=== PATIENT | female | born 1985 | race Caucasian/White ===

== ENCOUNTER 2022-01-29 08:18 | Emergency (ER) | payer MEDICAID, SELFPAY ==
[2022-01-29 08:30] VITALS: BP 99/67; PULSE 71; RESP 19; TEMP 36.9; O2SAT 98; BMI 28.1
--- NOTE | 2022-01-29 08:45 | HMH.EDUTC ---
[facility] [place] Clinical Impression: Viral syndrome Disposition: Home, Self-Care Condition on Discharge: Good Instructions: DI for COVID-19 (Suspected or Confirmed ), Preventing the Spread of Coronavirus Discharge Instructions, DI for Fever (Symptom) -- Adult Additional Instructions: *Monitor Temp, Over the counter Motrin or Tylenol as directed/as needed Tylenol every 4 hours and Motrin every 6 hours (as long as your family doctor has told you that you can take it) for fever or pain. and straight to ER if unable to lower temp less than 101.0 after medication given *Warm salt water gargles may help to soothe the throat *Throat Lozenges *Warm fluids like tea with honey may help to soothe the throat *Sleep elevated *Humidifier/Vaporizer Follow up IMMEDIATELY for new or worsening symptoms or no Noticeable improvement over the next 48-72 hours. 911 for difficulty breathing or swallowing You were tested for today for COVID19 your test result should be back in the next 24-48 hours, you may check your result on the [facility] My Health Portal Make sure to take your Vitamins Vit. C Vit D and Zinc if you can take them Referrals: Provider,Referral, [Primary Care Provider] - As needed Forms: Work/School Release Time of Disposition: 08:47 Medical Decision Making - Leo Inquiry Pt receiving controlled substance: No Leo was queried for this patient: No Vital Signs: 01/29/22 08:30 Temperature 98.5 F Temperature Source Oral Pulse Rate [Right Brachial] 71 Respiratory Rate 19 Blood Pressure [Right Arm] 99/67 L Blood Pressure Mean [Right Arm] 77 Blood Pressure Source [Right Arm] Automatic Cuff Blood Pressure Position [Right Arm] Sitting 02 Sat by Pulse Oximetry 98 Oxygen Delivery Method Room Air Orders (Tests/Meds): ORDERS Category Date Time Status Covid-19 Nasal PCR ([facility]) Routine Lab 01/29/22 08:29 Ordered [facility] [place] HPI - General Stated complaint: fever, ROBBINS, congestion Time Seen by Provider: 01/29/22 08:45 Mode of Arrival: Ambulatory Source of Information: Patient Limitations: No Limitations Description of Symptoms (Recalled from Triage Doc. by RN): PATIENT C/O FEVER, HEADACHE AND COUGH. RECENTLY EXPOSED TO COVID HEENT Symptoms (Recalled from RN notes): Yes Resp Symptoms (Recalled from RN notes): Yes Skin Symptoms (Recalled from RN notes): No MS Symptoms (Recalled from RN notes): No Functional Status (Recalled from RN notes): WNL - History of Present Illness Provider Complaint: Patient states that she has been having fever, headache, body aches and little cough States that her grandson tested positive for COVID on Thursday and she took an at home test this morning and it was positive so she came in to get tested - Related Data Home Medications Medication Instructions Recorded Confirmed buprenorphine 8 mg-naloxone 2 mg 1 tab SUBLINGUAL DAILY tab 10/18/18 01/29/22 sublingual tablet Allergies Allergy/AdvReac Type Severity Reaction Status Date / Time No Known Allergies Allergy Verified 01/29/22 08:43 - Worker's Comp Is this a Worker's Comp case?: No [facility] History - Hepatitis A Screen Attestation statement:: This patient has been screened for Hepatitis A risk factors. I have reviewed the patient's past medical history: Yes Laterality Cases: Bilateral: Tonsillectomy Other Surgeries: Yes: , Hysterectomy-Partial, Other - Social History Smoking Status: Current every day smoker # Packs/Day (cigarettes): 1 Alcohol Intake: never Substance Use Type: former substance user Occupational Status: other Family Hx:: Diabetes, Heart Attack ROS Obtained: Yes All systems reviewed & no additional complaints, Yes Systems reviewed as appropriate & no additional complaints - Constitutional Constitutional: Reports system reviewed and no additional complaints, except as docu, Reports body ache, Reports chills, Reports headache(s) - ENT Ears, Nose, Mouth, and Throat: Reports system re
[2022-01-29 08:50] VITALS: BP 99/67; PULSE 71; RESP 19; TEMP 36.9; O2SAT 98
== END 2022-01-29 08:54 | disposition home or self-care (01) ==
PROVIDERS: Emergency Provider Nurse Practitioner
DX: U07.1 COVID-19 (principal)
CPT/HCPCS: 99212; C9803; G0463; U0003; U0005

== ENCOUNTER → 2023-06-16 08:24 | Outpatient (CLI) | payer BC, SELFPAY ==
[2023-06-16 09:55] LABS: Alanine Aminotransferase 19 U/L (12-78); Albumin Level 4.1 g/dl (3.5-5.0); Albumin/Globulin Ratio 1.6 (1.1-1.8); Alkaline Phosphatase 63 U/L (38-126); Aspartate Amino Transferase 24 U/L (14-36); Bilirubin,Total 0.7 mg/dl (0.2-1.3); Blood Urea Nitrogen 10 mg/dl (7-17); Calcium 8.6 mg/dl (8.4-10.2); Carbon Dioxide 30 mmol/L (22.0-30.0); Chloride 102 mmol/L (98-107); Cholesterol 208 mg/dl (140-200); Estimated Glomerular Filt Rate 93 ml/min (>60); GFR (African American) 112 ML/MIN (>60); Globulin 2.6 g/dL (1.3-3.2); Glucose 98 mg/dl (74-100); Total Protein,Serum 6.7 g/dl (6.3-8.2); Triglycerides 105 mg/dl (30-150); VLDL Cholesterol 21 mg/dL (0-40)
[2023-06-16 10:06] LABS: Direct LDL Cholesterol 124.16 mg/dL (100-129)
[2023-06-16 10:29] LABS: Anion Gap 9.6 mEq/L (5-15); Potassium 4.6 mmoL/L (3.5-5.1); Sodium 137 mmol/L (136-145)
[2023-06-16 10:33] LABS: Chol/HDL Ratio 3.6 (1-3.5); HDL Cholesterol 57 mg/dl (40-60)
== END ==
PROVIDERS: PCP Nurse Practitioner Family; Visit Provider Nurse Practitioner Family
DX: Z00.00 Encounter for general adult medical examination without abnormal findings (principal)
CPT/HCPCS: 36415; 80053; 80061

== ENCOUNTER → 2023-06-19 15:43 | Outpatient (CLI) | payer BC, SELFPAY ==
--- NOTE | 2023-06-19 15:51 | MM_ITS ---
PROCEDURE INFORMATION: Exam: Bilateral Screening 3D Mammography Exam date and time: 06/19/2023 3:53 PM Age: 38 years old Clinical indication: Baseline. Maternal aunts had breast cancer. TECHNIQUE: Imaging protocol: Bilateral Screening tomosynthesis and 2D mammography including computer-aided detection (CAD) when performed. COMPARISON: No relevant prior studies available. FINDINGS: MAMMOGRAPHY: Breast composition: The breasts are heterogeneously dense, which may obscure small masses. Mass: None. Architectural distortion: None. Calcifications: No suspicious calcifications. Asymmetric density: None. Skin thickening: None. Axillary adenopathy: None. IMPRESSION: No mammographic evidence of malignancy. Annual screening is recommended unless otherwise clinically indicated. ASSESSMENT: BI-RADS Category 1: Negative
== END ==
PROVIDERS: PCP Nurse Practitioner Family; Visit Provider Nurse Practitioner Family
DX: Z12.31 Encounter for screening mammogram for malignant neoplasm of breast (principal)
CPT/HCPCS: 77063; 77067

== ENCOUNTER 2024-09-27 06:21 | Day surgery (SDC) | payer MEDICAID, SELFPAY ==
[2024-09-26 11:42] VITALS: BMI 29.5
--- NOTE | 2024-09-27 07:40 | EXP.ANES.CKL ---
[facility] Disclaimer: The information contained in this section may have been updated after the patient was seen, as this information can be updated by other users. Medical History (Updated 09/26/24 @ 11:41 by Lacie Ruano RN) Rectal bleeding Surgical History (Updated 09/26/24 @ 11:39 by Lacie Ruano RN) History of tonsillectomy History of History of hysterectomy Family History (Updated 09/26/24 @ 11:39 by Lacie Ruano RN) Other Coronary artery disease Rectal cancer Social History Smoking Status: Current every day smoker alcohol intake: never substance use type: former substance user current occupational status: other Travel in the last 8 weeks: None Have you lived/traveled outside US in past 30 days?: No Contact w/someone who lives/traveled outside US past 30 days?: No Exposure to someone with infectious disease in past 14 days?: No Do you have a fever (greater than 100.4 F or 38 C)?: No Have you tested positive for COVID-19: No Exposed to someone with COVID-19 in past 14 days?: No Do you have a sore throat?: No Do you have a cough?: No Do you have any weakness?: No Do you have any diarrhea?: No Are you experiencing any unusual bleeding?: No Do you have any muscle aches/pain?: No Do you have any abdominal pain?: No Are you experiencing loss of taste or smell?: No [facility] Anesthesia Checklist Patient Identification Patient Identification: Arm Band and Verbal (Name & ) Structural Data Admitted From: Home Planned Operative Procedure/s: Colonoscopy Consent for Planned Operative Procedure(s) Verified: Yes Verified Documents: Surgical Consent and History and Physical NPO Status Verified Time NPO: 04:00 Chart Verification Results Verified: BMP Additional verifications Patient : No Anesthesia Reactions: No Previous Colonoscopy: Yes Cardiovascular Assessment Heart Sounds: S1 & S2 Pulse Rhythm: Irregular Peripheral Edema: No Airway Assessment Mallampati Score:: Class II C-Spine Mobility Assessed: Yes (FROM demonstrated) TMJ Mobility Assessed: Yes Dentition: Dentures-good fit (Upper) Neurological Assessment Level of Consciousness: Awake, Alert, Appropriate and Follows Commands Hx Seizures: No Numbness or tingling in extremities: No Anesthesia Plan Anesthesia Risk discussed: Yes Anesthesia Plan: Verified ASA Class: II Anesthesia Type: MAC
[2024-09-27 07:45] VITALS: BP 115/66; PULSE 55; RESP 18; TEMP 36.9; O2SAT 98
[2024-09-27] MEDS: LACTATED RINGERS 1000ML 1,000 ML 50 ML IV (07:54)
--- NOTE | 2024-09-27 08:05 | P.PCN_ITS ---
Procedure: Date: 09/27/24 Patient Date of :: 1985 Procedure Performed:: Limited flexible sigmoidoscopy [colonoscopy (aborted)] Indications:: Screening Performing Provider:: Jonah Fong MD Referring Provider:: . Sedation:: Monitored anesthesia care Procedure:: After informed consent was obtained the patient was taken to the endoscopy suite. Sedation ensued after the patient was transferred to the left lateral decubitus position. Pulse, blood pressure, and oxygen saturation were monitored throughout the procedure. Digital rectal exam revealed no significant abnormality. The colonoscope was placed in position. Formed stool within the sigmoid/rectum noted. Advancement beyond this point deemed unwarranted/unsafe. The colonoscope was carefully removed and the patient was transferred to [facility] in stable condition. Please see findings and specimens below for detail. Findings:: Bowel preparation exceedingly poor Specimens:: None Recommendations:: Gastroenterology consultation for evaluation regarding chronic constipation (patient endorses lifelong constipation ) and for short-term colonoscopy. Complications:: Colonoscopy aborted secondary to exceedingly poor bowel preparation Estimated blood obtained (mL): 0 Colonoscopy Component Colonoscopy Component Was a colonoscopy performed during today's procedure?: Yes Recommended follow up colonoscopy of at least 10 years?: No If no, follow up colonoscopy recommended in ___ years?: (See above) Reason for not recommending >/= 10 yr follow-up interval?: (See above)
[2024-09-27 08:36] VITALS: O2SAT 97
[2024-09-27 08:47] VITALS: BP 88/52; PULSE 62; RESP 18; TEMP 36.4; O2SAT 96
[2024-09-27 08:57] VITALS: BP 92/60; PULSE 68; RESP 18; O2SAT 98
[2024-09-27 09:07] VITALS: BP 111/67; PULSE 66; RESP 20; O2SAT 98
[2024-09-27 09:17] VITALS: BP 114/72; PULSE 66; RESP 18; O2SAT 96
== END 2024-09-27 09:27 | disposition home or self-care (01) ==
PROVIDERS: PCP Nurse Practitioner Family; Visit Provider Surgery
PROC: 0DJD8ZZ Inspection of Lower Intestinal Tract, Via Natural or Artificial Opening Endoscopic (ICD-10-PCS; CPT 45378; principal; 2024-09-27 08:25)
DX: Z53.8 Procedure and treatment not carried out for other reasons (principal); Z12.11 Encounter for screening for malignant neoplasm of colon
CPT/HCPCS: 45378; J7120

== ENCOUNTER 2025-04-19 07:57 | Outpatient (CLI) | payer BC, SELFPAY ==
[2025-04-19 08:23] LABS: Hematocrit 44.3 % (37.0-47.0); Hemoglobin 15.0 g/dL (12.2-16.2); Immature Granulocytes % 0.4 %; Mean Corpuscular HGB Conc 33.9 g/dL (31.8-35.4); Mean Corpuscular Hemoglobin 29.2 pg (27.0-31.2); Mean Corpuscular Volume 86.2 fl (81-99); Nucleated Red Blood Cells % 0 %; Platelet Count 272 K/mm3 (142-424); Red Blood Count 5.14 M/mm3 (4.20-5.40); Red Cell Distribution Width-SD 38.5 fL; White Blood Count 7.5 K/mm3 (4.8-10.8)
[2025-04-19 08:56] LABS: Alanine Aminotransferase 11 U/L (12-78); Albumin Level 3.9 g/dl (3.5-5.0); Albumin/Globulin Ratio 1.6 (1.1-1.8); Alkaline Phosphatase 77 U/L (38-126); Anion Gap 11.4 mEq/L (5-15); Aspartate Amino Transferase 17 U/L (14-36); Bilirubin,Total 0.9 mg/dl (0.2-1.3); Blood Urea Nitrogen 13 mg/dl (7-17); Calcium 9.2 mg/dl (8.4-10.2); Carbon Dioxide 27 mmol/L (22.0-30.0); Chloride 103 mmol/L (98-107); Cholesterol 198 mg/dl (140-200); Creatinine,Serum 0.70 mg/dl (0.52-1.04); Estimated Glomerular Filt Rate 92 ml/min (>60); GFR (African American) 112 ML/MIN (>60); Globulin 2.4 g/dL (1.3-3.2); Glucose 99 mg/dl (74-100); HDL Cholesterol 59 mg/dl (40-60); Potassium 4.4 mmoL/L (3.5-5.1); Sodium 137 mmol/L (136-145); Total Protein,Serum 6.3 g/dl (6.3-8.2); Triglycerides 64 mg/dl (30-150)
[2025-04-19 09:26] LABS: Thyroid Stimulating Hormone 1.27 uIU/mL (0.465-4.68)
[2025-04-19 09:41] LABS: Hemoglobin A1C 5.5 % (4.0-6.0)
[2025-04-19 09:45] LABS: Vitamin B12 316 pg/mL (239-931)
[2025-04-19 10:00] LABS: 25-OH Vitamin D, Total 39.2 ng/mL (30-100)
[2025-04-20 08:23] LABS: FSH 3.5 mIU/mL (.); LH 5.7 mIU/mL (.)
== END 2025-04-19 23:59 | disposition home or self-care (01) ==
LOC: LAB 07:59
PROVIDERS: PCP Nurse Practitioner Family; Visit Provider Nurse Practitioner Family
DX: Z00.00 Encounter for general adult medical examination without abnormal findings (principal); R53.81 Other malaise
CPT/HCPCS: 36415; 80053; 80061; 82306; 82607; 82670; 83001; 83002; 83036; 84443; 85025

== ENCOUNTER 2025-04-28 12:48 | Outpatient (CLI) | payer BC, SELFPAY ==
--- NOTE | 2025-04-28 12:51 | MM_ITS ---
PROCEDURE INFORMATION: Exam: MG Bilateral Screening 3D Mammography Exam date and time: 04/28/2025 1:20 PM Age: 39 years old Clinical indication: Screening examination. Maternal aunt had breast cancer. TECHNIQUE: Imaging protocol: Bilateral Screening tomosynthesis and 2D mammography including computer-aided detection (CAD) when performed. COMPARISON: MG MM DIG SCREENING MAMM BI W/CAD 06/19/2023 3:53 PM FINDINGS: MAMMOGRAPHY: Breast composition: The breasts are heterogeneously dense, which may obscure small masses. Mass: Question new oval partly obscured 1.7 cm mass in the left lower inner quadrant anterior 3rd, 1.5-4 cm from the nipple and similar 0.8 cm mass in the left upper outer quadrant posterior 3rd 6-8 cm from the nipple, CC series 1718 frame 26 and MLO series 96674 frame 25. Architectural distortion: None. Calcifications: No suspicious calcifications. Asymmetric density: None. Skin thickening: None. Axillary adenopathy: None. IMPRESSION: Patient recalled for left diagnostic mammography with spot compression CC and MLO and left sonography for further evaluation left breast masses. ASSESSMENT: BI-RADS Category 0: Incomplete: Need Additional Imaging Evaluation.
== END 2025-04-28 23:59 | disposition home or self-care (01) ==
LOC: RAD 12:48
PROVIDERS: PCP Internal Medicine Adolescent Medicine; Visit Provider Nurse Practitioner Family
DX: Z12.31 Encounter for screening mammogram for malignant neoplasm of breast (principal); R92.333 Mammographic heterogeneous density, bilateral breasts; R92.8 Other abnormal and inconclusive findings on diagnostic imaging of breast; Z80.3 Family history of malignant neoplasm of breast
CPT/HCPCS: 77063; 77067

== ENCOUNTER 2025-05-25 13:41 | Outpatient (CLI) | payer BC, SELFPAY ==
--- NOTE | 2025-05-25 13:44 | US_ITS ---
PROCEDURE INFORMATION: Exam: US Left Breast, Complete MG Left Diagnostic Breast Tomosynthesis Exam date and time: 05/25/2025 1:51 PM Age: 40 years old Clinical indication: Callback for a left breast mammogram finding. Family history of breast cancer. TECHNIQUE: Imaging protocol: Complete ultrasound of all four quadrants of the left breast and the retroareolar regions, including ultrasound of the axilla when performed. Left Diagnostic tomosynthesis and 2D mammography including computer-aided detection (CAD) when performed. Unilateral or bilateral exam. COMPARISON: MG MM DIG SCREENING MAMM BI W/CAD 04/28/2025 1:20 PM FINDINGS: MAMMOGRAPHY: Breast composition: The breast is heterogeneously dense, which may obscure small masses. Breast mammogram findings: In the left retroareolar breast, there is a partially obscured but rounded mass which measures 1.8 cm. No distortion or suspicious calcifications. ULTRASOUND: Breast ultrasound findings: Ultrasound of the left breast is performed and demonstrates a simple cyst in the retroareolar aspect that measures 2.1 x 1.3 x 1.7 cm. This correlates to the mammogram finding and is benign. Incidentally, there are additional simple and minimally complicated cysts. There is a questioned hypoechoic mass/complicated cyst in the 2 o'clock axis, 7 cm from the nipple that measures 0.4 x 0.3 x 0.7 cm. There is no shadowing or distortion. Six-month follow-up ultrasound for this finding is recommended. No axillary adenopathy. IMPRESSION: 1. The finding in the left breast in the retroareolar aspect is consistent with a benign cyst. 2. There is an incidental hypoechoic mass/complicated cyst in the left breast 2 o'clock axis, 7 cm from the nipple that measures 0.7 cm. A six-month follow-up ultrasound for this finding is recommended. 3. Given the reported risk factors coupled with the patient's breast density, a breast cancer risk assessment may prove useful for further evaluation. ASSESSMENT: BI-RADS Category 3: Probably benign.
== END 2025-05-25 23:59 | disposition home or self-care (01) ==
LOC: RAD 13:42
PROVIDERS: PCP Nurse Practitioner Family; Visit Provider Nurse Practitioner Family
DX: N60.02 Solitary cyst of left breast (principal); R92.332 Mammographic heterogeneous density, left breast
CPT/HCPCS: 76641; 77061; 77065; G0279

== ENCOUNTER 2025-06-29 06:02 | Day surgery (SDC) | payer BC, SELFPAY ==
--- NOTE | 2025-06-24 06:32 | EXP.HP ---
History of Present Illness *Admission Date: 06/29/25 *History of present illness: Mrs. Munguia is a 40-year-old female who is here for diagnostic colonoscopy. The patient does report chronic constipation since childhood and may skip 3 to 4 days between bowel movements. She has struggled with hemorrhoids over the years and does have some frequent hemorrhoidal bleeding and prolapse. Her father had rectal cancer at the age of 68. She did have an attempted colonoscopy (Jonah Fong M.D.) but the procedure was aborted because of inadequate bowel preparation. The examination is deemed medically necessary for diagnostic colonoscopy. The patient has been seen, interviewed and examined prior to the procedure by both myself and the anesthesia provider. [facility] Disclaimer: The information contained in this section may have been updated after the patient was seen, as this information can be updated by other users. Medical History Rectal bleeding Surgical History History of tonsillectomy History of History of hysterectomy Family History Other Coronary artery disease Rectal cancer Social History (Updated 06/29/25 @ 06:22 by Glo Santana RN) Smoking Status: Current every day smoker alcohol intake: never substance use type: former substance user current occupational status: employed Travel in the last 8 weeks?: None caffeine: Yes Have you lived/traveled outside US in past 30 days?: No Contact w/someone who lives/traveled outside US past 30 days?: No Exposure to someone with infectious disease in past 14 days?: No Do you have a fever (greater than 100.4 F or 38 C)?: No Have you tested positive for COVID-19?: No Exposed to someone with COVID-19 in past 14 days?: No Do you have a sore throat?: No Do you have a cough?: No Do you have any weakness?: No Are you experiencing any nausea/vomitting?: No Do you have any diarrhea?: No Are you experiencing any unusual bleeding?: No Do you have any muscle aches/pain?: No Do you have any abdominal pain?: No Are you experiencing loss of taste or smell?: No Other Medical History Have you received the Pneumonia Vaccine: No Review of Systems Review of Systems Review of systems (narrative): Negative *Cardiovascular Comments: Negative *Gastrointestinal Comments: Negative *Genitourinary Comments: Negative *Musculoskeletal Comments: Negative *Neurologic Comments: Negative Meds Home Medications and Allergies Home Medications ?Medication ?Instructions ?Recorded ?Confirmed ?Type buprenorphine 8 mg-naloxone 2 mg 1 tab sublingual DAILY BACK PAIN 10/18/18 06/29/25 History sublingual tablet polyethylene glycol 3350 17 17 g PO BID 09/27/24 06/29/25 History gram/dose oral powder (Miralax) peg 3350-electrolytes 236 240 ml PO Q10M colonscopy #4,000 mL 06/09/25 Rx gram-22.74 gram-6.74 gram-5.86 gram solution (Golytely) New Prescriptions to Start Prescriptions: Allergies Allergy/AdvReac Type Severity Reaction Status Date / Time No Known Allergies Allergy Verified 06/29/25 06:19 Exam *Routine HEENT Exam Head: Present normocephalic Eye: Present EOMI and PERRL ENT: Present mucous membranes moist *Routine Neck Exam Neck: Present supple *Routine Respiratory Exam Respiratory: Present CTA bilaterally *Routine Cardiovascular Exam Cardiovascular: Present RRR *Routine Abdominal Exam Abdominal: Present soft and normoactive bowel sounds; Absent tenderness *Routine Rectal Exam Rectal:: deferred *Routine Genitalia Exam Genitalia:: deferred *Routine Extremities Exam Extremities: Absent cyanosis, clubbing or edema *Routine Skin Exam Skin: Present warm; Absent rash *Routine Neurological Exam Neurological: Present alert and oriented X3 Assessment and Plan *Assessment and plan (1) Chronic constipation: Status: Acute Category: Medical Code(s): K59.09 - Other constipation (2) Rectal bleeding: Status: Acute Category: Medical Code(s): K62.5 - Hemorrhage of anus and rectum (3) Hemorrhoids: Status: Acute Category: Medical Code(s): K64.9 - Unspecified hemorrhoids (4) Family history of rectal cancer: Status: Acute Category: Medical Code(s): Z80.0 - Family history of malignant neoplasm of digestive organs Plan A/P: 1. Bright red rectal bleeding (presumably secondary to hemorrhoids), intractable constipation, family history of rectal cancer is the preprocedural diagnosis. The patient will be anesthetized/sedated using MAC sedation. The patient has been seen and examined. Cardiac and lung assessment prior to the examination is stable. Proceed with planned diagnostic colonoscopy.
[2025-06-27 13:54] VITALS: BMI 27.4
[2025-06-29 06:29] VITALS: BP 111/63; PULSE 65; RESP 16; TEMP 36.5; O2SAT 98
[2025-06-29] MEDS: LACTATED RINGERS 1000ML 1,000 ML 50 ML IV (06:34)
--- NOTE | 2025-06-29 06:49 | P.PCN_ITS ---
[facility] Procedure Note Date: 06/29/25 Time: 07:50 Procedure Note:: Colonoscopy Procedure Report: Colonoscopy with hemorrhoid band ligation Endoscopist: Maciej Cruz II, MD Referring physician: NBA Fields Date of Procedure: June 29, 2025 Equipment: Olympus [id number] adult colonoscope Sedation: MAC sedation Indication: Mrs. Munguia is a 40-year-old female who is here for diagnostic colonoscopy. The patient does report chronic constipation since childhood and may skip 3 to 4 days between bowel movements. Over the years, she has tried suppositories, enemas, Dulcolax and stimulant laxatives. She has tried fiber and MiraLAX. She has struggled with hemorrhoids over the years and does have some frequent hemorrhoidal bleeding and prolapse. Her father had rectal cancer at the age of 68. She did have an attempted colonoscopy (Jonah Fong M.D.) but the procedure was aborted because of inadequate bowel preparation. The examination is deemed medically necessary for diagnostic colonoscopy. Procedure: Prior to the procedure, a history and physical exam was performed, and patient's medications and allergies were reviewed. The risks, benefits and alternatives of the sedation and procedure were discussed with the patient. All questions were answered and informed consent was obtained. The patient was brought to the procedure room. Patient identification and proposed procedure were verified by the physician and the nurse. The patient was placed in a left lateral decubitus position and the scope was passed under direct vision. Throughout the procedure, the patient's blood pressure, pulse, and oxygen saturations were monitored continuously. The colonoscopy was accomplished without difficulty. The patient tolerated the procedure well. Findings: On digital rectal examination there was normal rectal tone. There was some hemorrhoidal prolapse. The colonoscope was introduced through the anal canal to the rectum and advanced to the cecum. The ileocecal valve and appendiceal orifice were identified. The scope was advanced a short distance into the ileum which appeared grossly normal. The scope was then withdrawn into the colon. The cecum, ascending, transverse, descending, sigmoid and rectum were grossly normal. There were no mucosal abnormalities identified. Upon retroflexion within the rectum there were grade 2-3 internal hemorrhoids. 3 columns of hemorrhoids were banded using 3 bands with excellent ligation effect. The preparation was fair throughout with [place] Preparation Score of 6-7 out of 9. Multiple washings were performed and the colonic mucosa was visualized throughout. The cecal time was 15 minutes. Impression: 1. Normal colonoscopy with intubation of the terminal ileum 2. Grade 2-3 internal hemorrhoids status post band ligation x 3 Plan: The patient does primarily have outlet dysfunction constipation and would b enefit from pelvic floor physical therapy. I would continue MiraLAX twice daily with bulking fiber. I would consider Perdiem in the evenings.
--- NOTE | 2025-06-29 07:29 | EXP.ANES.CKL ---
[facility] Disclaimer: The information contained in this section may have been updated after the patient was seen, as this information can be updated by other users. Medical History Rectal bleeding Surgical History History of tonsillectomy History of History of hysterectomy Family History Other Coronary artery disease Rectal cancer Social History (Updated 06/29/25 @ 06:22 by Glo Santana RN) Smoking Status: Current every day smoker alcohol intake: never substance use type: former substance user current occupational status: employed Travel in the last 8 weeks?: None caffeine: Yes Have you lived/traveled outside US in past 30 days?: No Contact w/someone who lives/traveled outside US past 30 days?: No Exposure to someone with infectious disease in past 14 days?: No Do you have a fever (greater than 100.4 F or 38 C)?: No Have you tested positive for COVID-19?: No Exposed to someone with COVID-19 in past 14 days?: No Do you have a sore throat?: No Do you have a cough?: No Do you have any weakness?: No Are you experiencing any nausea/vomitting?: No Do you have any diarrhea?: No Are you experiencing any unusual bleeding?: No Do you have any muscle aches/pain?: No Do you have any abdominal pain?: No Are you experiencing loss of taste or smell?: No [facility] Anesthesia Checklist Patient Identification Patient Identification: Arm Band and Family Structural Data Admitted From: Home Planned Operative Procedure/s: Colonoscopy Consent for Planned Operative Procedure(s) Verified: Yes Verified Documents: Surgical Consent and History and Physical NPO Status Verified Time NPO: 00:00 Additional verifications Patient : No Anesthesia Reactions: No Hx Blood Transfusions: No Blood Transfusion Reaction: No Cephalosporin Allergy: No Previous Colonoscopy: Yes Airway Assessment Mallampati Score:: Class II C-Spine Mobility Assessed: Yes TMJ Mobility Assessed: Yes Dentition: Partials Neurological Assessment Level of Consciousness: Awake, Alert, Appropriate and Follows Commands Hx Seizures: No Numbness or tingling in extremities: No Anesthesia Plan Anesthesia Risk discussed: Yes ASA Class: II Anesthesia Type: MAC Preoperative Comments Pre-Operative Comments: Smoker. Rx Seboxin.
[2025-06-29 07:58] VITALS: BP 99/68; PULSE 69; RESP 16; TEMP 36.2; O2SAT 96
[2025-06-29 08:08] VITALS: BP 114/68; PULSE 63; RESP 16; TEMP 36.2; O2SAT 98
[2025-06-29 08:18] VITALS: BP 111/71; PULSE 61; RESP 18; TEMP 36.2; O2SAT 98
[2025-06-29 08:28] VITALS: BP 125/75; PULSE 69; RESP 18; TEMP 36.2; O2SAT 98
== END 2025-06-29 08:28 | disposition home or self-care (01) ==
PROVIDERS: PCP Nurse Practitioner Family; Visit Provider Internal Medicine Gastroenterology
PROC: 0DJD8ZZ Inspection of Lower Intestinal Tract, Via Natural or Artificial Opening Endoscopic (ICD-10-PCS; CPT 45378; principal; 2025-06-29 07:30)
DX: K64.1 Second degree hemorrhoids (principal); K64.2 Third degree hemorrhoids; K59.09 Other constipation; F17.210 Nicotine dependence, cigarettes, uncomplicated; Z79.899 Other long term (current) drug therapy; Z80.0 Family history of malignant neoplasm of digestive organs; Z90.710 Acquired absence of both cervix and uterus
CPT/HCPCS: 45398; C1889; J2003; J2704; J7120